=== PATIENT | male | born 1975 | race Caucasian/White ===

== ENCOUNTER 2017-06-08 16:45 | Emergency (ER) | payer OTHER ==
[~2017-06-08] VITALS: Ht 165.1 cm; Wt 72.6 kg
[2017-06-08] MEDS ORDERED: TETRACAINE HCL 0.5% OPTH(EYE) SOLN 4ML EACHEYE ONE (19:45)
[2017-06-08] MEDS ORDERED: FLUORESCEIN SOD 1 MG TEST STRIP EACHEYE ONE (19:45)
[2017-06-08 20:08] VITALS: BP 140/82
[2017-06-08] MEDS ORDERED: GENTAMICIN SULF 0.3% OPTH(EYE) OINT 3.5GM EACHEYE ONE (21:00)
[2017-06-08] MEDS ORDERED: GENTAMICIN SULF 0.3% OPTH(EYE) OINT 3.5GM RIGHTEYE ONE (21:00)
[2017-06-08] MEDS ORDERED: ERYTHROMY OPTH OINT 5mg/gm 1gm OP ONE (21:15)
== END 2017-06-08 21:24 ==
LOC: ER 16:45
DX: T15.01XA Foreign body in cornea, right eye, initial encounter (principal); H16.001 Unspecified corneal ulcer, right eye; X58.XXXA Exposure to other specified factors, initial encounter; Y93.89 Activity, other specified; Y92.89 Other specified places as the place of occurrence of the external cause; Y99.8 Other external cause status
CPT/HCPCS: 65222

== ENCOUNTER 2019-05-31 05:45 | Day surgery (SDC) | payer OTHER ==
[~2019-05-31] VITALS: Ht 170.2 cm; Wt 72.6 kg
[2019-05-31] MEDS ORDERED: ceFAZolin 1GM/50ML 50 ML IV ONE (06:43)
[2019-05-31] MEDS ORDERED: LIDOCAINE 1% HCL (LOCAL ANESTH.) INJ 20ML MDV ONE (07:13)
[2019-05-31] MEDS ORDERED: BUPIVACAINE 0.5% MPF INJ 30ML SDV IJ ONE (07:13)
[2019-05-31] MEDS ORDERED: HEPARIN SODIUM (PORCINE) 5000 UNITS/ML 1ML VIAL ONE (07:23)
[2019-05-31] MEDS ORDERED: SUCCINYLCHOLINE CHLORIDE 20 MG/ML 10ML VIAL IV ONE (07:27)
[2019-05-31] MEDS ORDERED: LIDOCAINE 1% (LOCAL ANESTH.) PF 5ml SDV ONE (07:27)
[2019-05-31] MEDS ORDERED: METOCLOPRAMIDE HCL 5MG/ml INJ 2ml VIAL ONE (07:30)
[2019-05-31] MEDS ORDERED: MIDAZOLAM HCL 1MG/1ML-2 ML VIAL ONE (07:30)
[2019-05-31] MEDS ORDERED: PROPOFOL 10 MG/ML 20 ML IV ONE (07:32)
[2019-05-31] MEDS ORDERED: ROCURONIUM 10MG/ML 10ML VIAL IV ONE (07:32)
[2019-05-31] MEDS ORDERED: fentaNYL CITRATE 100 MCG/2 ML VL ONE (07:41)
[2019-05-31] MEDS ORDERED: HYDROmorphone HCL 2 MG/ML VL IV PRN ×2 (08:00)
[2019-05-31] MEDS ORDERED: ONDANSETRON HCL 4 MG/2 ML VIAL IV PRN (08:00)
[2019-05-31] MEDS ORDERED: NALOXONE HCL 0.4 MG/ML VIAL IV PRN (08:00)
[2019-05-31] MEDS ORDERED: GLYCOPYRROLATE 0.2 MG/ML 1ML VIAL ONE (08:02)
[2019-05-31] MEDS ORDERED: NEOSTIGMINE 1 MG/ML INJ (10mg/10ML VIAL) ONE (08:02)
[2019-05-31 09:00] VITALS: BP 140/82
== END 2019-05-31 09:15 | disposition home or self-care (01) ==
LOC: SUR 05:45
DX: K42.0 Umbilical hernia with obstruction, without gangrene (principal); M19.90 Unspecified osteoarthritis, unspecified site; Z87.891 Personal history of nicotine dependence; Z79.899 Other long term (current) drug therapy
CPT/HCPCS: 49587; J0330; J0690; J1644; J2001; J2250; J2704; J2765; J3010; J3490